=== PATIENT | female | born 1985 | race African-American/Black ===

== ENCOUNTER 2016-04-02 12:07 | Emergency (ER) | payer OTHER ==
[~2016-04-02] VITALS: Ht 162.6 cm; Wt 70.3 kg
[~2016-04-02 12:07] MED LIST: AMOXIL500 MG PO; ENDOCET 325 MG-1 TA1 PO; HYDROCODONE/ACE1 TA1 PO; IBUPROFEN800 MG PO; MOTRIN 600 MG600 MG PO; NATURAL IRON65 MG PO; PEN-VK500 MG PO; PERCOCET 325 MG1 TA2 PO; PRENATAL1 TA2 PO; ULTRAM(MONOGRAP50 MG PO; VICODIN 5-3001 EACH PO; ZOFRAN 4 MG TABL4 MG PO
--- NOTE | 2016-04-02 13:29 | ED EAR COMPLAINT ---
History of Present Illness General Chief Complaint: Ear Complaints Stated Complaint: RT EAR PAIN Source: patient Exam Limitations: no limitations Vital Signs & Intake/Output Vital Signs & Intake/Output Vital Signs Date Time Temp Pulse Resp B/P Pulse O2 O2 Flow FiO2 Ox Delivery Rate 04/02 1431 98.0 80 20 110/70 100 Room Air 04/02 1245 97.9 76 18 114/81 100 Room Air Allergies Coded Allergies: NO KNOWN ALLERGIES (09/07/15) Reconcile Medications No Known Home Medications Triage Note: C/O R EAR PAIN X 8 HOURS. STATES SHE IS 11 WEEKS . Triage Nurses Notes Reviewed? yes : Yes Patient currently breastfeeds: No HPI: Patient is a 31-year-old female approximately 11 weeks presents complaining of right-sided ear pain. Pain onset overnight, woke patient from sleep at approximately 3 AM. Pain is a sharp pain no exacerbating or alleviating factors. Patient has not taken any medication for her symptoms prior to arrival. Patient's 1-year-old daughter is sick with a cough at home. Patient denies fevers, dyspnea, difficulty swallowing, abdominal pain, vaginal bleeding. Past History Travel History Traveled to [place] past 21 day No Medical History Any Pertinent Medical History? see below for history Neurological: NONE EENT: NONE Cardiovascular: NONE Respiratory: asthma Gastrointestinal: NONE Hepatic: NONE Renal: NONE Musculoskeletal: NONE Psychiatric: NONE Endocrine: NONE Blood Disorders: NONE Cancer(s): NONE WIRE INSULATOR/Reproductive: NONE Tetanus Vaccine: 10/14/11 Surgical History Surgical History: non-contributory Psychosocial History What is your primary language Thai Tobacco Use: Current Daily Use Daily Tobacco Use Amount/Type: =< 4 Cigarettes daily ETOH Use: denies use Family History Hx Contributory? No Review of Systems Review of Systems Constitutional: Denies: chills, fever. EENTM: Reports: ear pain. Respiratory: Denies: cough, short of breath. Cardiovascular: Denies: chest pain. GI: Denies: abdominal pain, vomiting. Genitourinary: Reports: no symptoms. Musculoskeletal: Reports: no symptoms. Skin: Reports: no symptoms. Neurological/Psychological: Reports: no symptoms. Hematologic/Endocrine: Reports: no symptoms. Immunologic/Allergic: Reports: no symptoms. Physical Exam Physical Exam General Appearance: well developed/nourished, alert, awake Head: atraumatic, normal appearance Eyes: Bilateral: normal appearance, PERRL, EOMI. Ears: Left: canal normal, Tympanic normal. Right: other (cerumen impaction). Nose: normal inspection Mouth/Throat: normal mouth inspection, pharynx normal Neck: normal inspection, supple, full range of motion, no midline tenderness, no lymphadenopathy Cardiovascular/Respiratory: normal breath sounds, regular rate/rhythm, no respiratory distress Gastrointestinal: soft/nontender Back: normal inspection, normal range of motion Neurologic/Psych: no motor/sensory deficits, awake, alert, oriented x 3, normal gait, normal mood/affect Skin: intact, normal color, warm/dry Progress Differential Diagnoses I considered the following diagnoses in my evaluation of the patient: Otitis media, otitis externa, cerumen impaction, viral upper respiratory infection Plan of Care: Current Medications Sig/Kameron Start time Last Medication Dose Stop Time Status Admin Acetaminophen 650 MG ONCE ONE 04/02 1345 UNVr (Tylenol) 04/02 1346 1345: Discussed with Dr. Bruner. 1425: Large amount of cerumen removed from right EAC using currette. Significant improvement in pain after removal of cerumen. Right tympanic membrane and EAC normal after cerumen removal. (INOCENCIO MARRERO,ASIA) Initial ED EKG: none Departure Departure Time of Disposition: 1431 Disposition: HOME OR SELF CARE Condition: Stable Clinical Impression Primary Impression: Impacted cerumen of right ear Referrals: SOLEDAD CAR (PCP/Family) Additional Instructions: Take Tylenol as directed. Follow-up with your primary care provider if you continue with pain on Tuesday. Return to the emergency department if fevers or worsening of symptoms. Departure Forms: Customer Survey General Discharge Information Prescriptions: Current Visit Scripts No Known Home Medications
[2016-04-02 14:31] VITALS: BP 110/70
== END 2016-04-02 14:35 ==
LOC: ERH 12:07
DX: H61.21 Impacted cerumen, right ear (principal); Z33.1 Pregnant state, incidental; Z3A.11 11 weeks gestation of pregnancy